=== PATIENT | female | born 1990 | race Caucasian/White ===

== ENCOUNTER 2017-05-12 20:34 | Emergency (ER) | payer OTHER ==
[~2017-05-12] VITALS: Ht 162.6 cm; Wt 81.7 kg
== END 2017-05-12 23:30 | disposition home or self-care (01) ==
LOC: ED 20:34
DX: O99.89 Other specified diseases and conditions complicating pregnancy, childbirth and the puerperium (principal); R10.30 Lower abdominal pain, unspecified; Z3A.01 Less than 8 weeks gestation of pregnancy
CPT/HCPCS: 36415; 81001; 84702; 84703; 85025; 99283

== ENCOUNTER 2018-12-22 23:32 | Emergency (ER) | payer OTHER ==
[~2018-12-22] VITALS: Ht 157.5 cm; Wt 127.0 kg
--- OUTSIDE RECORDS SUMMARY | ~2018-12-22 | XMS | Clinical Summary ---
Demographics + + + | Address | [address] | | | [place] [address] | + + + | Home Phone | | + + + | Preferred Language | Unknown | + + + | Marital Status | | + + + | Jew Affiliation | Unknown | + + + | Race | Unknown | + + + | Ethnic Group | Unknown | + + + Author + + + | Author | [facility] | | | and [place] | + + + | Organization | [facility] | | | and [place] | + + + | Address | Unknown | + + + | Phone | Unavailable | + + + Support + + +---------+ + | Name | Relationship | Address | Phone | + + +---------+ + | Eros Nascimento | ECON | Unknown | | + + +---------+ + Care Team Providers + +------+ + | Care Fine Hairer Name | Role | Phone | + +------+ + PCP | Unavailable | + +------+ + Allergies Not on File Medications Not on file Active Problems Not on file Social History + +-------+ +--------+------+ | Tobacco Use | Types | Packs/Day | Years | Date | | | | | Used | | + +-------+ +--------+------+ | Never Assessed | | | | | + +-------+ +--------+------+ + + + | Sex Assigned at | Date Recorded | | | | + + + | Not on file | | + + + + + + + | Job Start Date | Occupation | Industry | + + + + | Not on file | Not on file | Not on file | + + + + + + + + | Travel History | Travel Start | Travel End | + + + + + + | No recent travel history available. | + + Last Filed Vital Signs + + + + | Vital Sign | Reading | Time Taken | + + + + | Blood Pressure | 130/72 | 06/17/20161305 PDT | + + + + | Pulse | 88 | 06/17/20161305 PDT | + + + + | Temperature | 36.8 C (98.2 F) | 06/17/20161305 PDT | + + + + | Respiratory Rate | 18 | 06/17/20161305 PDT | + + + + | Oxygen Saturation | 99% | 06/17/20161305 PDT | + + + + | Inhaled Oxygen | - | - | | Concentration | | | + + + + | Weight | 119 kg (262 lb 5.6 | 06/17/20161305 PDT | | | oz) | | + + + + | Height | 160 cm (5' 2.99") | 06/17/20161305 PDT | + + + + | Body Mass Index | 46.49 | 06/17/20161305 PDT | + + + + Plan of Treatment + + + + + | Health Maintenance | Due Date | Last Done | Comments | + + + + + | Vaccine: | | | | | Dtap/Tdap/Td (1 - | 8 | | | | Tdap) | | | | + + + + + | Cervical Cancer | | | | | Screening (Pap) | 0 | | | + + + + + | Vaccine: Influenza | | | | | (#1) | 9 | | | + + + + + Results Not on filefrom Last 3 Months
--- OUTSIDE RECORDS SUMMARY | ~2018-12-22 | XMS | Clinical Summary ---
Demographics + + + | Address | [address] | | | [place] [address] | + + + | Home Phone | | + + + | Preferred Language | Unknown | + + + | Marital Status | | + + + | Restoration Affiliation | Unknown | + + + | Race | Unknown | + + + | Ethnic Group | Unknown | + + + Author + + + | Author | [facility] | | | and [place] | + + + | Organization | [facility] | | | and [place] [...] Team Providers + +------+ + | Care Drain Cleaner Name | Role | Phone | + [...]
[~2018-12-22 23:32] MED LIST: AMOXICILLIN500 MG PO
== END 2018-12-23 01:30 | disposition home or self-care (01) ==
LOC: ED 23:32
DX: N93.9 Abnormal uterine and vaginal bleeding, unspecified (principal); F17.200 Nicotine dependence, unspecified, uncomplicated; Z88.5 Allergy status to narcotic agent; Z88.8 Allergy status to other drugs, medicaments and biological substances
CPT/HCPCS: 84702; 85025; 96360; 99284-25; J7030

== ENCOUNTER 2020-10-31 14:14 | Emergency (ER) | payer OTHER ==
[~2020-10-31] VITALS: Ht 157.5 cm; Wt 129.3 kg
== END 2020-10-31 20:22 | disposition home or self-care (01) ==
LOC: ED 14:14
DX: U07.1 COVID-19 (principal); Z87.891 Personal history of nicotine dependence; Z88.6 Allergy status to analgesic agent; Z88.5 Allergy status to narcotic agent
CPT/HCPCS: 99284; U0003

== ENCOUNTER 2021-11-05 08:38 | Inpatient (IN) | payer OTHER ==
[~2021-11-05] VITALS: Ht 157.5 cm; Wt 135.2 kg
--- NOTE | 2021-11-19 08:44 | NUR ---
11/19/21 0844 Eleanor,Jyoti 1619 PT ARRIVED TO ROOM 104 AND PT AWAKE AND TALKING TO RN. VSS. PT DENIES PAIN AND NAUSEA. SPINAL LEVEL T-4 PER MANAGER BOOK. IV INFUSING LR WITH 20 UNIT PIT, SITE WNL IN RIGHT HAND.
--- NOTE | 2021-11-20 09:52 | PR ---
[facility] [address] [facility] [place] [address] Signed PP Progress Notes Datetime Report Generated by CPN: 11/20/2021 09:52 SUBJECTIVE: [id number] Pain: Within Normal Limits Nausea/Vomiting: Denies Vital Signs: [id number] Vital Signs: Reviewed; Within Normal Limits Notable Details: PP Hgb/Hct = 9.7/30.1 EXAM: Ongoing Abdomen/Uterus: Normal Lochia: Normal Extremities: Normal Incision: Normal Exam Comments: obese IMPRESSION/PLAN/PROCEDURES: [id number] Impression: Normal Progression Plan: Continue Present Management Procedures: None Progress Notes: Doing well, without complaint, voiding without difficulty, tolerating food well, sitting up in chair . Signing Physician: Courtney Zuluaga MD Copies: ~ *Electronically Signed* 11/20/21 0952 COURTNEY ZULUAGA MD PATIENT NAME: MARYBEL CASTRO PROGRESS NOTE DATE OF : 88 PHYSICIAN: COURTNEY ZULUAGA MD RPT #: [id number] REPORT IS CONFIDENTIAL AND NOT TO BE RELEASED WITHOUT AUTHORIZATION
--- NOTE | 2021-11-21 09:15 | OR ---
[facility] [address] [place], [place] [address] Signed DATE OF OPERATION: 11/19/2021 SURGEON: Omar Ramon MD PREOPERATIVE DIAGNOSES: 1. Term . 2. Previous section. 3. Obesity. POSTOPERATIVE DIAGNOSES: 1. Term . 2. Previous section. 3. Obesity. 4. Pelvic adhesions. PROCEDURES: Repeat low transverse segment section, delivery of a live female , Lysis of Adhesions . ANIMAL REHABILITATOR: Cheyanne Loja D.O. ANESTHESIA: Spinal. ESTIMATED BLOOD LOSS: 600 mL. COMPLICATIONS: None. DRAINS: Briggs to bladder. FINDINGS: Live female , Apgars 9 and 9. Weight 7 pounds 9 ounces. Normal uterus with two long thin omental adhesions, one to the right anterior lower uterine segment and one to the left lower anterior uterine segment. The bladder flap was slightly elevated with some filmy adhesions in the midline. The rest of the uterus appeared normal. Normal Electronically Signed By: OMAR RAMON MD 11/21/21 0915 PATIENT NAME: MARYBEL CASTRO OPERATIVE REPORT DATE OF : 88 REPORT #: [id number] PHYSICIAN: OMAR RAMON MD PCP: NO PRIMARY CARE PHYSICIAN REPORT IS CONFIDENTIAL AND NOT TO BE RELEASED WITHOUT AUTHORIZATION [facility] [address] [place] [id number] Signed tubes and ovaries bilateral. DESCRIPTION OF PROCEDURE: The patient was brought to the operating room and placed in supine position. After adequate spinal anesthesia was obtained, she was prepped and draped in the usual sterile fashion. Briggs catheter was placed in the bladder. Pfannenstiel skin incision made through previous surgical scar. Subcutaneous tissue was dissected with the Bovie and scalpel. The fascia was nicked with scalpel and extended in transverse fashion using curved scissors. The underlying abdominal musculature was bluntly and sharply from the fascia above and below the incision. The abdominal musculature was bluntly sharply along the midline. The Jamey self-retaining retractor was inserted into the incision and tightened in place. The lower uterine segment was identified. The filmy adhesions in the midline lower uterine segment in the area of the uterine incision were taken down with Metzenbaum scissors. The lateral omental adhesions were out of the way, so the lower uterine segment was carefully nicked with scalpel and extended in transverse fashion using finger dissection. was noted to be in the vertex ILEANA presentation. Infant head easily delivered from the incision. The cord was noted to be around the neck once loosely, this was easily removed and the rest of the easily delivered from the incision. The cord was doubly clamped and cut. The passed off table in good condition to awaiting nurse. The placenta was manually removed. Uterine cavity explored with lap pad to remove any retained membranes. An angle stitch of 0-Monocryl was placed at one end of the incision and a running locking stitch of 0-Monocryl starting at the other end used to close the incision. A second running stitch of 0-Monocryl was used to imbricate the first layer. The entire pelvis was irrigated, suctioned, and examined. There was small amount of bleeding at the left angle, this was controlled with a wtbtmo-gh-psabe stitch of 0-Monocryl, and there was some superficial bleeding spots at the area of the midline dissection, these were cauterized with the Bovie. The right omental adhesion was thin filmy and was cut with the Bovie and both edges noted to have good hemostasis. The left adhesion was still thin, but wider and had vasculature within, so two Astrid clamps used to clamp the adhesion close to the uterus with two Astrid clamps. The adhesion was cut between the two clamps and free ties of 2-0 chromic suture placed on each pedicle. Good hemostasis was noted. At this point, the pelvis was again irrigated, suctioned, and examined, noted to have good hemostasis. The Jamey retractor was removed. The anterior wall of the peritoneum closed using running stitch of 2-0 Vicryl suture. The abdominal musculature was reapproximated using interrupted stitches of 0-Vicryl suture. Abdominal wall incision was irrigated, suctioned, and examined, and any bleeding spots cauterized with the Bovie. The fascia was closed using two running stitch of 0-Vicryl suture meeting in the midline. Subcutaneous tissue was closed using interrupted stitches of 3-0 Vicryl sutures. The subcutaneous tissue was irrigated, suctioned, and examined, any bleeding spots cauterized with the Bovie. Subcutaneous tissue then closed using interrupted stitches of 3-0 Vicryl suture. The skin was reapproximated using skin Electronically Signed By: OMAR RAMON MD 11/21/21 0915 PATIENT NAME: MARYBEL CASTRO OPERATIVE REPORT DATE OF : 88 REPORT #: [id number] PHYSICIAN: OMAR RAMON MD PCP: NO PRIMARY CARE PHYSICIAN REPORT IS CONFIDENTIAL AND NOT TO BE RELEASED WITHOUT AUTHORIZATION [place] [id number] Signed clips. The patient tolerated the procedure well and went to the recovery room in good condition. The sponge, needle, and instrument count were correct at the end of procedure. MD EDWAR Marroquin/MODL /[id number] Copies: ~ Electronically Signed By: OMAR RAMON MD 11/21/21914 PATIENT NAME: MARYBEL CASTRO OPERATIVE REPORT DATE OF : 88 REPORT #: [id number] PHYSICIAN: OMAR RAMON MD PCP: NO PRIMARY CARE PHYSICIAN REPORT IS CONFIDENTIAL AND NOT TO BE RELEASED WITHOUT AUTHORIZATION
--- NOTE | 2021-11-21 09:21 | PR ---
[facility] [address] [facility] [place] [address] Signed PP Progress Notes Datetime Report Generated by CPN: 11/21/2021 09:21 SUBJECTIVE: [id number] Pain: Within Normal Limits Nausea/Vomiting: Denies Vital Signs: [id number] Vital Signs: Reviewed; Within Normal Limits Notable Details: PP Hgb/Hct = 9.7/30.1 EXAM: Ongoing Abdomen/Uterus: Normal Lochia: Normal Extremities: Normal Incision: Normal Exam Comments: obese IMPRESSION/PLAN/PROCEDURES: [id number] Impression: Normal Progression Plan: Discharge Procedures: None Progress Notes: Doing well, without complaint, up walking, ready to go home. Signing Physician: Courtney Zuluaga MD Copies: ~ *Electronically Signed* 11/21/21 09 COURTNEY ZULUAGA MD PATIENT NAME: MARYBEL CASTRO PROGRESS NOTE DATE OF : 88 PHYSICIAN: COURTNEY ZULUAGA MD RPT #: [id number] REPORT IS CONFIDENTIAL AND NOT TO BE RELEASED WITHOUT AUTHORIZATION
[2021-11-22] MEDS ORDERED: OXYCODONE-ACET1 EAC1 PO (11:15)
[2021-11-22] MEDS ORDERED: IBUPROFEN800 MG PO (11:15)
[2021-11-22] MEDS ORDERED: MYLANTA GAS MIN42 MG PO (11:15)
[2021-11-22] MEDS ORDERED: SURFAK240 MG PO (11:15)
[2021-11-22] MEDS ORDERED: PRENATA CHEWAB1 EACH PO (11:16)
[2021-11-22] MEDS ORDERED: FEROSUL325 MG PO (11:16)
== END 2021-11-21 10:45 | disposition home or self-care (01) | DRG 788 ==
LOC: FBC 11-19 05:02
PROVIDERS: ADMIT General Practice; ATTEND General Practice
PROC: 0UN90ZZ Release Uterus, Open Approach (ICD-10-PCS; 2021-11-19)
PROC: 10D00Z1 Extraction of Products of Conception, Low, Open Approach (ICD-10-PCS; principal; 2021-11-19 07:30)
DX: O34.211 Maternal care for low transverse scar from previous cesarean delivery (principal); Z3A.39 39 weeks gestation of pregnancy; Z37.0 Single live birth; O99.214 Obesity complicating childbirth; E66.9 Obesity, unspecified; Z79.899 Other long term (current) drug therapy; Z87.891 Personal history of nicotine dependence; O99.62 Diseases of the digestive system complicating childbirth; Z79.82 Long term (current) use of aspirin; K21.9 Gastro-esophageal reflux disease without esophagitis; Z86.16 Personal history of COVID-19; F41.9 Anxiety disorder, unspecified; O99.344 Other mental disorders complicating childbirth; O99.892 Other specified diseases and conditions complicating childbirth; N73.6 Female pelvic peritoneal adhesions (postinfective)
CPT/HCPCS: 01961; 36415; 85027; 86850; 86900; 86901; A9270; J0690; J1100; J1644; J2274; J2370; J2405; J2590; J2765; J2795; J3010; J7121

== ENCOUNTER 2021-11-22 08:29 | Emergency (ER) | payer OTHER ==
[~2021-11-22] VITALS: Ht 152.4 cm; Wt 135.2 kg
[2021-11-22] MEDS ORDERED: MYLANTA GAS MIN42 MG PO (11:15)
[2021-11-22] MEDS ORDERED: SURFAK240 MG PO (11:15)
[2021-11-22] MEDS ORDERED: OXYCODONE-ACET1 EAC1 PO (11:15)
[2021-11-22] MEDS ORDERED: IBUPROFEN800 MG PO (11:15)
[2021-11-22] MEDS ORDERED: PRENATA CHEWAB1 EACH PO (11:16)
[2021-11-22] MEDS ORDERED: FEROSUL325 MG PO (11:16)
--- NOTE | 2021-11-23 17:35 | EKG ---
[facility] [address] [facility] [place] [address] Signed Sinus tachycardia Nonspecific ST and T wave abnormality Abnormal ECG No previous ECGs available Confirmed by MEAGHAN DAVIS MD ([id number]) on 11/23/2021 5:35:51 PM Electronically Signed By: MEAGHAN DAVIS MD 11/23/21 1735 PATIENT NAME: MARYBEL CASTRO Electrocardiogram DATE OF : 88 PHYSICIAN: MEAGHAN DAVIS MD REPORT #: [id number] REPORT IS CONFIDENTIAL AND NOT TO BE RELEASED WITHOUT AUTHORIZATION
== END 2021-11-22 12:28 | disposition home or self-care (01) ==
LOC: ED 08:29
DX: O99.893 Other specified diseases and conditions complicating puerperium (principal); R07.9 Chest pain, unspecified; Z87.891 Personal history of nicotine dependence; Z88.5 Allergy status to narcotic agent; Z79.899 Other long term (current) drug therapy
CPT/HCPCS: 36415; 71045; 71260; 80053; 84484; 85025; 85379; 93005; 93010; 99285-25; Q9967